=== PATIENT | female | born 1960 | race Caucasian/White ===

== ENCOUNTER 2023-01-09 14:37 | Emergency (ER) | payer BC ==
[2023-01-09] MEDS ORDERED: oxyCODONE 5 MG Tab PO ONE (15:44)
[2023-01-09 16:01] LABS: BASOPHILS ABSOLUTE AUTO 0.03 K/uL (0.00-0.20); BASOPHILS PERCENT AUTO 0.4 % (0.0-2.0); EOSINOPHILS PERCENT AUTO 1.3 % (0.0-5.0); HEMATOCRIT 37.6 % (34.0-46.0); HEMOGLOBIN 12.4 g/dL (11.7-15.5); LYMPHOCYTES ABSOLUTE AUTO 1.21 K/uL (0.50-3.50); LYMPHOCYTES PERCENT AUTO 15.8 % (10.0-50.0); MEAN CORPUSCULAR HEMOGLOBIN 31.7 pg (28.2-33.3); MEAN CORPUSCULAR VOLUME 96.2 fL (84.0-98.0); MONOCYTES ABSOLUTE AUTO 0.39 K/uL (0.00-1.00); MONOCYTES PERCENT AUTO 5.1 % (2.0-14.0); NEUTROPHILS ABSOLUTE AUTO 5.94 K/uL (1.40-7.00); NEUTROPHILS PERCENT AUTO 77.4 % (45.0-80.0); PLATELET COUNT,PLT 156 K/uL (150-350); RED BLOOD CELL COUNT 3.91 M/uL (3.77-5.09); RED CELL DISTRIBUTION WIDTH 13.5 % (11.2-14.1); WHITE BLOOD CELL COUNT,WBC 7.7 K/uL (4.0-10.2)
[2023-01-09 16:21] LABS: ALANINE AMINOTRANSFERASE,ALT 18 U/L (12-78); ALBUMIN 4.1 g/dL (3.4-5.0); ALKALINE PHOSPHATASE 162 IU/L (46-116); ANION GAP 6.9 meq/L (7-15); ASPARTATE AMNIOTRANSFERASE,AST 21 U/L (15-37); BILIRUBIN TOTAL 0.9 mg/dL (0.2-1.0); BLOOD UREA NITROGEN,BUN 20 mg/dL (7-18); CALCIUM 9.9 mg/dL (8.5-10.1); CARBON DIOXIDE,CO2 28.1 mmol/L (21.0-32.0); CHLORIDE,CL 106 mmol/L (98-107); CREATININE 0.68 mg/dL (0.51-1.17); GLUCOSE RANDOM 108 mg/dL (70-99); POTASSIUM,K 3.9 mmol/L (3.5-5.1); PROTEIN TOTAL,TP 7.1 g/dL (6.4-8.2); SODIUM,NA 141 mmol/L (136-145)
[2023-01-09 16:23] LABS: ESTIMATED GFR 98 mL/min (>=60)
== END 2023-01-09 17:30 | disposition home or self-care (01) ==
LOC: LL.ED 14:37
DX: S42.212A Unspecified displaced fracture of surgical neck of left humerus, initial encounter for closed fracture (principal); S82.832A Other fracture of upper and lower end of left fibula, initial encounter for closed fracture; S92.902A Unspecified fracture of left foot, initial encounter for closed fracture; Z88.1 Allergy status to other antibiotic agents; W18.40XA Slipping, tripping and stumbling without falling, unspecified, initial encounter
CPT/HCPCS: 36415; 73030-LT; 73060-LT; 73610-LT; 80053; 85025; 99283

== ENCOUNTER 2023-06-25 09:07 | Emergency (ER) | payer BC | END 2023-06-25 10:24 | disposition home or self-care (01) | LOC: LL.ED 09:07 | DX: M25.511 Pain in right shoulder (principal); Z86.16 Personal history of COVID-19; Z88.1 Allergy status to other antibiotic agents | CPT/HCPCS: 73030-RT; 99283 ==